=== PATIENT | male | born 2005 | race Hispanic/Latino ===

== ENCOUNTER 2024-12-31 13:59 | Emergency (ER) | payer BC, SELFPAY ==
[2024-12-31] MEDS ORDERED: methylPREDNISolone Sod Succ/PF 125 MG/2 ML VIAL ONE (14:40)
[2024-12-31] MEDS ORDERED: EPINEPHrine 1 MG/ML VIAL ONE (14:40)
[2024-12-31] MEDS ORDERED: diphenhydrAMINE 50 MG/ML VIAL ONE (14:40)
== END 2024-12-31 17:35 | disposition home or self-care (01) ==
LOC: CSHERS 13:59
DX: T78.2XXA Anaphylactic shock, unspecified, initial encounter (principal)
CPT/HCPCS: 96372; 96374; 96375; J0171; J1200; J2919